=== PATIENT | male | born 1995 | race Caucasian/White ===

== ENCOUNTER 2017-08-23 13:01 | Emergency (ER) | payer OTHER ==
[2017-08-23 13:10] VITALS: BP 136/90; PULSE 77; RESP 18; TEMP 97.1
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
[2017-08-23 19:26] LABS: Hepatitis B Surface AB- Quant 21.5 mIU/mL; Hepatitis C IgG Antibody Non-Reactive (Non-Reactive)
[2017-08-23 21:00] LABS: HIV AB P24 Non-Reactive (Non-Reactive); HIV P24 AG Non-Reactive (Non-Reactive)
== END 2017-08-23 14:26 | disposition home or self-care (01) ==
LOC: EC 13:01
DX: Z77.21 Contact with and (suspected) exposure to potentially hazardous body fluids (principal)
CPT/HCPCS: 36415; 86706; 86803; 87390; 99282

== ENCOUNTER → 2018-04-20 | Outpatient (CLI) | payer OTHER ==
--- NOTE | 2018-04-20 12:58 | XR ---
EXAMINATION TYPE: XR ankle complete LT DATE OF EXAM: 04/20/2018 COMPARISON: NONE HISTORY: Pain TECHNIQUE: 3 views of the left ankle are submitted for evaluation. FINDINGS: There is no evidence for fracture or dislocation. Ankle mortise is intact. Soft tissues are within normal limits. IMPRESSION: 1. No evidence for acute fracture.
--- NOTE | 2018-04-20 12:58 | XR ---
EXAMINATION TYPE: XR foot complete LT DATE OF EXAM: 04/20/2018 CLINICAL HISTORY: pain TECHNIQUE: Frontal, lateral and oblique images of the left foot are obtained. COMPARISON: None. FINDINGS: There is no acute fracture/dislocation evident. The joint spaces appear within normal wilks its. The overlying soft tissue appears unremarkable. IMPRESSION: There is no acute fracture or dislocation. ICD 10 NO FRACTURE, INITIAL EVALUATION
== END | disposition home or self-care (01) ==
LOC: RADXRMAIN 12:30
PROVIDERS: ATTEND Emergency Medicine
DX: M25.572 Pain in left ankle and joints of left foot (principal)

== ENCOUNTER 2018-06-17 08:08 | Emergency (ER) | payer OTHER ==
[2018-06-17 08:23] VITALS: RESP 18
[2018-06-17] MEDS ORDERED: ACETAMINOPHEN TAB 500 MG TAB PO STA (08:32)
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
[2018-06-17] MEDS ORDERED: KETOROLAC 60 MG/2 ML VIAL IVP STA (09:46)
[2018-06-17] MEDS ORDERED: ONDANSETRON 4 MG/2 ML VIAL IVP STA (09:46)
[2018-06-17] MEDS ORDERED: ONDANSETRON 4 MG ODT STARTER PACK 2 TAB BTL PO STA (09:47)
[2018-06-17] MEDS ORDERED: KETOROLAC 60 MG/2 ML VIAL IM STA (09:48)
[2018-06-17] MEDS ORDERED: ONDANSETRON ODT 4 MG TAB PO STA (09:48)
[2018-06-17 10:14] VITALS: BP 124/88; PULSE 73; TEMP 97.6
== END 2018-06-17 10:11 | disposition home or self-care (01) ==
LOC: EC 08:08
DX: S06.0X0A Concussion without loss of consciousness, initial encounter (principal); W01.0XXA Fall on same level from slipping, tripping and stumbling without subsequent striking against object, initial encounter; Y93.89 Activity, other specified; Y92.69 Other specified industrial and construction area as the place of occurrence of the external cause; Y99.0 Civilian activity done for income or pay
CPT/HCPCS: 70450; 99284; 96372; J1885; S0119

== ENCOUNTER → 2018-06-20 | Outpatient (CLI) | payer OTHER ==
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
== END ==
LOC: RADCTMAIN 11:27
PROVIDERS: ATTEND Emergency Medicine
DX: S13.4XXA Sprain of ligaments of cervical spine, initial encounter (principal)
CPT/HCPCS: 72125

== ENCOUNTER 2018-11-07 21:59 | Emergency (ER) | payer OTHER ==
--- NOTE | 2018-11-08 00:12 | CT ---
History: ITS.REASON CT Reason: Pain Exam: CT HEAD Without Contrast Technique more: CTDI is 45.2 mGy and DLP is 1171.6 mGy-cm. Technique more: This CT exam was performed using one or more of the following dose reduction techniques: automated exposure control, adjustment of the mA and/or kV according to patient size, and/or use of iterative reconstruction technique. Comparison: 06/17/2018 FINDINGS: No intracranial hemorrhage, mass effect or calvarial fracture. The ventricles are unchanged in size and remain midline. Galindo-white differentiation appears within limits. IMPRESSION: No intracranial hemorrhage, mass effect or calvarial fracture.
--- NOTE | 2018-11-08 00:17 | CT ---
History: ITS.REASON CT Reason: Pain Exam: CT FACIAL Without Contrast Technique more: CTDI is 45.2 mGy and DLP is 1171.6 mGy-cm. Technique more: This CT exam was performed using one or more of the following dose reduction techniques: automated exposure control, adjustment of the mA and/or kV according to patient size, and/or use of iterative reconstruction technique. Comparison: Head CT 06/17/2017 FINDINGS: The entire mandible is not included on imaging. No fracture. The globes appear intact without retrobulbar stranding. The paranasal sinuses and mastoids are clear. The TMJs appear normal located. IMPRESSION: The entire mandible is not included on imaging. No fracture. The globes appear intact without retrobulbar stranding.
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
--- NOTE | 2018-11-08 01:24 | XR ---
History: ITS.REASON XR Reason: Pain Exam: XR RIGHT SHOULDER 3 views Comparison: None available FINDINGS: No fracture or dislocation. The visualized right lung appears clear. IMPRESSION: No fracture or dislocation.
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
[2018-11-08 01:41] VITALS: BP 130/93; PULSE 82; RESP 20; TEMP 98.8
== END 2018-11-08 01:46 | disposition home or self-care (01) ==
LOC: EC 21:59
DX: R51 Headache (principal); M25.511 Pain in right shoulder; Y04.0XXA Assault by unarmed brawl or fight, initial encounter; Y92.149 Unspecified place in prison as the place of occurrence of the external cause; Y92.69 Other specified industrial and construction area as the place of occurrence of the external cause; Y99.0 Civilian activity done for income or pay
CPT/HCPCS: 70450; 70486; 99284